=== PATIENT | female | born 1930 | race Caucasian/White ===

== ENCOUNTER 2019-05-11 08:04 | Emergency (ER) | payer MEDICARE ==
[~2019-05-11] VITALS: Ht 154.9 cm; Wt 63.0 kg
[~2019-05-11 08:04] MED LIST: CALC-141 PO; CARV40CP PO; CIPR500T87 PO; COLE625T12 PO; EZET10TA70 PO; FURO40TA6 PO; IRBE300T16 PO; POTA10TA11 PO; TRAM50TA2 PO
--- NOTE | 2019-05-11 09:39 | NUR ---
PT TO CT
[2019-05-11 09:57] VITALS: BP 144/81
== END 2019-05-11 10:40 | disposition home or self-care (01) ==
LOC: ED 10:23
DX: S00.83XA Contusion of other part of head, initial encounter (principal); S09.90XA Unspecified injury of head, initial encounter; W01.0XXA Fall on same level from slipping, tripping and stumbling without subsequent striking against object, initial encounter; Y93.89 Activity, other specified; Y92.009 Unspecified place in unspecified non-institutional (private) residence as the place of occurrence of the external cause; Y99.8 Other external cause status
CPT/HCPCS: 70450; 70486; 99284